=== PATIENT | male | born 1965 | race Caucasian/White ===

== ENCOUNTER 2017-03-20 13:31 | Inpatient (IN) | payer MEDICAID ==
--- NOTE | 2017-03-20 13:44 | CPEKG ---
Heart Rate: 86 RR Interval: 698 P-R Interval: 95 QRSD Interval: 88 QT Interval: 368 QTC Interval: 440 P [place]: 0 QRS [place]: -22 T Wave [place]: 26 EKG Severity - BORDERLINE ECG - EKG Impression: SINUS RHYTHM EKG Impression: SHORT ME INTERVAL, ACCELERATED AV CONDUCTION EKG Impression: BORDERLINE LEFT AXIS DEVIATION Electronically Signed By: Felipe Vargas 20-Mar-2017 14:31:24
--- NOTE | 2017-03-20 14:28 | EDPHY ---
H & P Time Seen by Provider: 03/20/17 14:22 HPI/ROS: CHIEF COMPLAINT: Found on the ground HISTORY OF PRESENT ILLNESS: Patient arrives by EMS after his landlord heard a bump and found the patient on the floor upstairs. Patient states he has no medical complaints to me but can't tell me anything other than he has high blood pressure. He does have a history of psychiatric issues and sees [facility]. There is no seizure activity noted. Patient was seen to be incontinent but did not bite his tongue. He does not remember the event. He denies previous history of seizure disorder. REVIEW OF SYSTEMS: Eye: no change in vision ENT: didn't bite tongue Cardiac: no chest pain Pulmonary: no cough or SOB Abdomen: no vomiting, diarrhea, abdominal pain Musculoskeletal: no back pain or neck pain Skin: no rash or laceration Neuro: no headache Constitutional: no fever : no urinary symptoms A comprehensive 10 point review of systems is otherwise negative aside from elements mentioned in the history of present illness. PAST MEDICAL HISTORY: Hypertension Social history: Denies alcohol General Appearance: Alert and cooperative. Eyes: No scleral icterus. ENT, Mouth: Normal mucous membranes. No tongue laceration or abrasion Respiratory: Normal respiratory effort, breath sounds equal, lungs are clear to auscultation. Cardiovascular: Regular rate and rhythm. Gastrointestinal: Abdomen is soft and non tender. Neurological: Alert, face symmetric, normal motor and sensory in extremities. No clonus. He is confused. Skin: Warm and dry, no rashes. Musculoskeletal: No peripheral edema. No spinal tenderness. Psychiatric: Not agitated. Emergency Department course/MDM: Patient says his medications get filled at [facility] contact to attempt to obtain a medication list. At 1434 patient has not filled any antiepileptic medication. Initial nurse's notes a seizure disorder but I am unable to confirm that. 12-lead EKG interpreted by me; official reading is in trace master. My interpretation is sinus rhythm with short TN interval of 95 and left axis. 1440: Although the patient had some incontinence, he did not bite his tongue and his venous bicarbonate is normal. With this history I think that seizure would be less likely than syncope, and with a short TN interval and delta wave noted in lead 2 I think likely should be hospitalized for observation admission for possible [id number] or other cardiac etiology of syncope. 1520: Medications reviewed from [facility] include Buspar, Cymbalta, Gabapentin, Propranolol, and Quetiapine. Smoking Status: Current every day smoker Constitutional: Initial Vital Signs Temperature (C) 36.7 C 03/20/17 13:40 Heart Rate 85 03/20/17 13:40 Respiratory Rate 18 03/20/17 13:40 Blood Pressure 132/102 H 03/20/17 13:40 O2 Sat (%) 97 03/20/17 13:40 O2 Delivery Mode Room Air Allergies/Adverse Reactions: Unable to Assess Allergy (Unverified 03/20/17 13:40) Home Medications: Medication Instructions Recorded Unobtainable 03/20/17 Medical Decision Making - Diagnostics Imaging Results: Imaging Impressions Head CT 03/20/17 14:27 Impression: Normal. Results called and discussed with Dr. Felipe Vargas at 03/20/2017 14:53. Carotid Doppler Study 03/20/17 15:09 Impression: Mild atherosclerotic plaque right carotid bulb which is not flow significant. No flow limiting stenosis in either carotid artery. No evidence for dissection. Measurement of carotid stenosis is based on velocity parameters that correlate the residual internal carotid diameter with [place] Symptomatic Carotid Endarterectomy Trial (NASCET) based on stenosis levels. Negative head CT per Dr. Piña at 1455 Imaging: Discussed imaging studies w/ house calls nurse practitioner Radiologist, I viewed and interpreted images myself Differential Diagnosis: Differential diagnosis considered for syncope including but not limited to seizure disorder or epilepsy, vasovagal syncope, arrhythmia, dehydration, and blood loss. Consult/Admit Bed Type: [facility] - Data Points Laboratory Results: Laboratory Results 03/20/17 13:20 03/20/17 13:20 03/20/17 03/20/17 03/20/17 13:20 13:20 13:20 WBC RBC Hgb Hct MCV MCH MCHC RDW Plt Count MPV Neut % (Auto) Lymph % (Auto) [place] % (Auto) Eos % (Auto) Baso % (Auto) Nucleat RBC Rel Count Absolute Neuts (auto) Absolute Lymphs (auto) Absolute Monos (auto) Absolute Eos (auto) Absolute Basos (auto) Absolute Nucleated RBC Immature Gran % Immature Gran # D-Dimer 0.54 ug/mLFEU H ug/mLFEU (0.00-0.50) Sodium Potassium Chloride Carbon Dioxide Anion Gap BUN Creatinine Estimated GFR Glucose Calcium Troponin I < 0.012 ng/mL ng/mL (0.000-0.034) Procalcitonin Pending 03/20/17 03/20/17 13:20 13:20 WBC 15.93 10^3/uL H 10^3/uL (3.80-9.50) RBC 5.04 10^6/uL 10^6/uL (4.40-6.38) Hgb 15.4 g/dL g/dL (13.7-17.5) Hct 46.9 % % (40.0-51.0) MCV 93.1 fL fL (81.5-99.8) MCH 30.6 pg pg (27.9-34.1) MCHC 32.8 g/dL g/dL (32.4-36.7) RDW 16.6 % H % (11.5-15.2) Plt Count 342 10^3/uL 10^3/uL (150-400) MPV 10.2 fL fL (8.7-11.7) Neut % (Auto) 82.4 % H % (39.3-74.2) Lymph % (Auto) 8.2 % L % (15.0-45.0) [place] % (Auto) 5.5 % % (4.5-13.0) Eos % (Auto) 2.5 % % (0.6-7.6) Baso % (Auto) 0.8 % % (0.3-1.7) Nucleat RBC Rel Count 0.0 % % (0.0-0.2) Absolute Neuts (auto) 13.14 10^3/uL H 10^3/uL (1.70-6.50) Absolute Lymphs (auto) 1.30 10^3/uL 10^3/uL (1.00-3.00) Absolute Monos (auto) 0.88 10^3/uL H 10^3/uL (0.30-0.80) Absolute Eos (auto) 0.40 10^3/uL 10^3/uL (0.03-0.40) Absolute Basos (auto) 0.12 10^3/uL H 10^3/uL (0.02-0.10) Absolute Nucleated RBC 0.00 10^3/uL 10^3/uL (0-0.01) Immature Gran % 0.6 % % (0.0-1.1) Immature Gran # 0.09 10^3/uL 10^3/uL (0.00-0.10) D-Dimer Sodium 144 mEq/L mEq/L (135-145) Potassium 4.2 mEq/L mEq/L (3.5-5.2) Chloride 103 mEq/L mEq/L (97-110) Carbon Dioxide 27 mEq/l mEq/l (22-31) Anion Gap 14 mEq/L mEq/L (8-16) BUN 21 mg/dL mg/dL (7-23) Creatinine 0.8 mg/dL mg/dL (0.7-1.3) Estimated GFR > 60 Glucose 93 mg/dL mg/dL (70-100) Calcium 9.7 mg/dL mg/dL (8.5-10.4) Troponin I Procalcitonin Medications Given: Discontinued Medications Nicotine (Nicoderm Cq) 21 mg TD EDNOW ONE Stop: 03/20/17 14:52 Last Admin: 03/20/17 15:09 Dose: 21 mg Departure - Departure Disposition: [facility] Inpatient Acute Clinical Impression: Syncope Qualifiers: Syncope type: unspecified Qualified Code(s): R55 - Syncope and collapse Condition: Good
[2017-03-20 14:32] LABS: PLATELET COUNT 342 10^3/uL (150-400)
[2017-03-20] MEDS ORDERED: NICOTINE 21 MG/24 HR PATCH TD ONE (14:51)
[2017-03-20] MEDS ORDERED: NICOTINE POLACRILEX 2 MG GUM B PRN (15:05)
[2017-03-20] MEDS ORDERED: ONDANSETRON 4 MG/2 ML VIAL IVP PRN (15:05)
[2017-03-20] MEDS ORDERED: ONDANSETRON DISINTEGRATING 4 MG TAB PO PRN (15:05)
[2017-03-20] MEDS ORDERED: ACETAMINOPHEN 325 MG TAB PO PRN (15:05)
[2017-03-20] MEDS ORDERED: IOPAMIDOL (ISOVUE 370) 100 ML BTL IV ONE (15:44)
--- NOTE | 2017-03-20 15:56 | PDGENHP ---
History and Physical - Chief Complaint Acute encephalopathy - History of Present Illness Primary care provider: Jesenia Durán [facility] Primary mental health: [facility] HPI: 51-year-old male presenting with acute encephalopathy characterized as confusion, disorientation, unresponsiveness and illogical thought process, with onset of symptoms at least on the day of this presentation. Per report, a " thud "was heard in the patient's apartment [facility], and the patient presumably experienced an associated unwitnessed fall. Another resident came up to check on him, and found him on the floor, confused, unable to provide any further history. The patient was brought to [facility], he subsequently urinated on himself before he is able to get to the bathroom, and it should be noted that he did not have overt urinary incontinence on presentation. On my interview with the patient, he reports that he is unaware of the situation precipitating this presentation, but he does have some chronic pain located in his lower back radiating bilaterally into his legs, for which he works with his primary care provider. He otherwise denies any chest pain, palpitations, shortness of breath, nausea vomiting or diarrhea, fever chills. He does endorse possible "cold" symptoms, but is otherwise unable to further qualify. It should be noted that the patient's ability to answer questions seems to be intermittent, and a good deal of his responses are illogical, asking whether there was a fire truck in the exam room , asking whether I was there to take his shoes off. He is unable to report whether he is taking his home medications as prescribed. History Information - Allergies/Home Medication List Allergies/Adverse Reactions: Unable to Assess Allergy (Unverified 03/20/17 13:40) Home Medications: Unobtainable 03/20/17 [Last Taken Unknown] I have personally reviewed and updated: family history, medical history, social history, surgical history - Past Medical History hypertension, hyperlipidemia Additional medical history: Generalized anxiety disorder, major depressive disorder, reported seizure disorder but not on any anti epileptic medications - Surgical History Reports: no pertinent surgical hx - Family History Additional family history: Patient reports that his family resides in [place], he is unable to provide any other additional family history - Social History Smoking Status: Current every day smoker Alcohol Use: None Drug Use: None Additional social history: Resides in mental health housing Review of Systems Review of Systems: ROS: 10pt was reviewed & negative except for what was stated in HPI & below Constitutional: Reports: other ("Cold ") Muscolosketal: Reports: back pain (With bilateral sciatica) Neurological: Reports: other (Confusion, disorientation, illogical thought process) Physical Exam Physical Exam: Temp Pulse Resp BP Pulse Ox 36.7 C 95 18 143/93 H 94 03/20/17 13:40 03/20/17 15:11 03/20/17 15:11 03/20/17 15:11 03/20/17 15:11 Constitutional: no apparent distress, not in pain, unkempt, No uncomfortable Eyes: PERRL, anicteric sclera, EOMI Ears, Nose, Mouth, Throat: moist mucous membranes, hearing normal, ears appear normal, no oral mucosal ulcers Cardiovascular: regular rate and rhythym, no murmur, rub, or gallop, No edema Respiratory: no respiratory distress, no rales or rhonchi, clear to auscultation Gastrointestinal: no palpable masses, No normoactive bowel sounds (Hypoactive), No tenderness, No guarding, No distension Skin: warm, No abrasion, No rash Neurologic: sensation intact bilaterally, other (Alert awake oriented x2 to person and time, not to place), No weakness (Motor strength 5/5 bilateral upper and lower extremities, but full neuro exam is somewhat complicated by the patient's difficulty with following directions), No facial droop Psychiatric: not anxious, encephalopathic, poor insight, poor memory, other ( Verbalizes illogical responses, asks illogical questions, thought process is tangential, does not appear to be actively manic, is cooperative during the exam but has difficulty following commands), No agitated Lab Data & Imaging Review 03/20/17 13:20 03/20/17 13:20 WBC 15.93 10^3/uL (3.80-9.50) H 03/20/17 13:20 RBC 5.04 10^6/uL (4.40-6.38) 03/20/17 13:20 Hgb 15.4 g/dL (13.7-17.5) 03/20/17 13:20 Hct 46.9 % (40.0-51.0) 03/20/17 13:20 MCV 93.1 fL (81.5-99.8) 03/20/17 13:20 MCH 30.6 pg (27.9-34.1) 03/20/17 13:20 MCHC 32.8 g/dL (32.4-36.7) 03/20/17 13:20 RDW 16.6 % (11.5-15.2) H 03/20/17 13:20 Plt Count 342 10^3/uL (150-400) 03/20/17 13:20 MPV 10.2 fL (8.7-11.7) 03/20/17 13:20 Neut % (Auto) 82.4 % (39.3-74.2) H 03/20/17 13:20 Lymph % (Auto) 8.2 % (15.0-45.0) L 03/20/17 13:20 [place] % (Auto) 5.5 % (4.5-13.0) 03/20/17 13:20 Eos % (Auto) 2.5 % (0.6-7.6) 03/20/17 13:20 Baso % (Auto) 0.8 % (0.3-1.7) 03/20/17 13:20 Nucleat RBC Rel Count 0.0 % (0.0-0.2) 03/20/17 13:20 Absolute Neuts (auto) 13.14 10^3/uL (1.70-6.50) H 03/20/17 13:20 Absolute Lymphs (auto) 1.30 10^3/uL (1.00-3.00) 03/20/17 13:20 Absolute Monos (auto) 0.88 10^3/uL (0.30-0.80) H 03/20/17 13:20 Absolute Eos (auto) 0.40 10^3/uL (0.03-0.40) 03/20/17 13:20 Absolute Basos (auto) 0.12 10^3/uL (0.02-0.10) H 03/20/17 13:20 Absolute Nucleated RBC 0.00 10^3/uL (0-0.01) 03/20/17 13:20 Immature Gran % 0.6 % (0.0-1.1) 03/20/17 13:20 Immature Gran # 0.09 10^3/uL (0.00-0.10) 03/20/17 13:20 D-Dimer 0.54 ug/mLFEU (0.00-0.50) H 03/20/17 13:20 Sodium 144 mEq/L (135-145) 03/20/17 13:20 Potassium 4.2 mEq/L (3.5-5.2) 03/20/17 13:20 Chloride 103 mEq/L (97-110) 03/20/17 13:20 Carbon Dioxide 27 mEq/l (22-31) 03/20/17 13:20 Anion Gap 14 mEq/L (8-16) 03/20/17 13:20 BUN 21 mg/dL (7-23) 03/20/17 13:20 Creatinine 0.8 mg/dL (0.7-1.3) 03/20/17 13:20 Estimated GFR > 60 03/20/17 13:20 Glucose 93 mg/dL (70-100) 03/20/17 13:20 Calcium 9.7 mg/dL (8.5-10.4) 03/20/17 13:20 Troponin I < 0.012 ng/mL (0.000-0.034) 03/20/17 13:20 Visualized and Interpreted EKG results: Yes EKG Interpretation: Positive for: other (Normal sinus mechanism, possible delta wave in lead II) Assessment & Plan Assessment: 51-year-old male presents with acute encephalopathy in the setting of generalized anxiety disorder, major depressive disorder Plan: 1. Acute encephalopathy. Acute, new problem this provider, further workup indicated. Evidenced by global brain dysfunction characterized as confusion, disorientation, illogical thought process, impaired memory, unclear etiology but it does appear that this is an acute change from his baseline as 1 of the other residents and/or staff from his residence sent him to the emergency department for apparent acute changes -unclear cause, potentially postictal, will placed on seizure precautions, get Neurology consultation, patient reports a seizure history -will check for evidence of infection with respiratory viral panel given his leukocytosis, procalcitonin level -will check prolactin level given possibility of seizure -given the possibility of syncope and marginally elevated D-dimer level, will get CT angiogram to rule out dissection, rule out pulmonary embolism -given the potential for cardiac arrhythmia in the setting of behavioral health medications and possible delta wave on EKG, will cycle cardiac enzyme, monitor on telemetry, have discussed the patient's presentation with Dr. Ignacio Rosenbaum and Cardiology will consult in the a.m. once further data is available -check carotid ultrasound, check echocardiogram -check drug screen -reviewed outside records including 01/25/2017 TSH level 2.3, repeat TSH at this time -obtain outside records from [facility], Jesenia Durán PCP, to determine the patient's baseline level of functioning -once the above workup has been completed, and if there is no recurrence of syncope or any other concerning events, if the patient's mental status continues to demonstrate illogical thought process, tangential thinking, would recommend behavioral health evaluation to determine whether the patient is psychiatrically decompensated and requiring inpatient mental health stay 2. Generalized anxiety disorder, major depressive disorder. Based on review of outside records from [facility], with the patient's home medications including BuSpar 15 mg daily, Cymbalta 60 mg daily, gabapentin 300 mg 3 times daily, propranolol 40 mg twice daily, Seroquel 100 mg at bedtime, Vistaril 50 mg as needed -emergency department case management reaching out to [facility] to obtain any additional information 3. Likely sciatica. Patient's description of his back pain and sciatica sending symptoms are currently being treated by gabapentin, continue Diet. Regular, NPO in a.m. in case any further cardiac workup indicated Prophylaxis. Moderate risk patient, given likely mobility, give Lovenox 40, hold off on SCDs given the patient's likelihood of falling Code. Full at present, unclear MD SHOEMAKER, patient is unable to answer this question Disposition. Anticipated discharge uncertain this time, anticipated length stay is greater than 48 hr for reasonable medical necessity including acute encephalopathy with extensive workup anticipated, as outlined above with underlying high risk mental health disorders.
--- NOTE | 2017-03-20 16:23 | PDMN ---
Medical Necessity Medical necessity: C/M review: est. > 2 MN LOS for eval and TX of acute and persistent encephalopathy of unclear etiology requiring planned echocardiogram, Neurology consult, Cardiology consult, ongoing cardiac monitoring, pulse oximetry, seizure precautions, seizure assessment, extensive workup, comorbid high risk mental health disorders - generalized anxiety disorder, major depressive disorder, likely sciatica, current every day smoker, patient resides in mental health housing, history of hypertension, hyperlipidemia, reported seizure disorder but patient not on any anti epileptic medications per H/P.
--- NOTE | 2017-03-20 18:17 | ASMTCMCOM ---
CM Note CM Note Notes: Pt presented to the ED via EMS from his apartment complex [facility] Pt had an unwitnessed fall; pt might have had seizure. Spoke with patient but patient was speaking incoherently; pt only able to provide logical responses intermittently. Spoke with [facility] ([phone]) and was able to get patient's medication list faxed over to the ED. Per chart review, it appears pt had outpatient labs drawn while at [place] [facility] on 01/25/18. Exact DC needs unknown. CM to follow Date Signed: 03/20/2017 06:16 PM Electronically Signed By:Danielle Sims RN
[2017-03-20] MEDS: PANTOPRAZOLE SODIUM 40 MG TAB PO SCH (18:24)
[2017-03-20 20:19] LABS: CREATINE KINASE 78 IU/L (0-224)
[2017-03-20] MEDS: GABAPENTIN 300 MG CAP PO SCH (23:36)
[2017-03-21 02:56] LABS: PLATELET COUNT 275 10^3/uL (150-400)
[2017-03-21 03:05] LABS: INR 0.98 (0.83-1.16); PROTIME(PATIENT) 13.2 SEC (12.0-15.0)
[2017-03-21] MEDS ORDERED: GABAPENTIN 300 MG CAP PO SCH (09:00)
[2017-03-21] MEDS ORDERED: PROPOFOL/EMULSION 500 MG/50 ML BOTTLE IV ONE (11:13)
[2017-03-21] MEDS ORDERED: MIDAZOLAM 2 MG/2 ML VIAL ONE (11:13)
[2017-03-21] MEDS ORDERED: LIDOCAINE 2% 5 ML SDV ONE (11:13)
--- NOTE | 2017-03-21 11:36 | PDANEPAE ---
ANE History of Present Illness egd ANE Past Medical History - Cardiovascular History Hx Hypertension: Yes Hx Arrhythmias: No Hx Chest Pain: No Hx Coronary Artery / Peripheral Vascular Disease: No Hx CHF / Valvular Disease: No Hx Palpitations: No - Pulmonary History Hx COPD: No Hx Asthma/Reactive Airway Disease: No Hx Recent Upper Respiratory Infection: No Hx Oxygen in Use at Home: No Hx Sleep Apnea: No Sleep Apnea Screening Result - Last Documented: Positive Pulmonary History Comment: smoker - Neurologic History Hx Cerebrovascular Accident: No Hx Seizures: No Hx Dementia: No - Endocrine History Hx Diabetes: No Hypothyroid: No Hyperthyroid: No - Renal History Hx Renal Disorders: No - Liver History Hx Hepatic Disorders: No - GI History GERD: moderate - Chronic Pain History Chronic Pain: Yes ANE Review of Systems Review of Systems: - Exercise capacity Exercise capacity: >=4 METS ANE Patient History - Allergies Allergies/Adverse Reactions: Unable to Assess Allergy (Unverified 03/20/17 13:40) - Home Medications Home Medications: DULoxetine [Cymbalta 60 MG (*)] 60 mg PO DAILY 03/20/17 [Last Taken Unknown] Gabapentin [Neurontin 300 MG (*)] 300 mg PO AD 03/20/17 [Last Taken Unknown] Gabapentin [Neurontin 300 MG (*)] 300 mg PO TID 03/20/17 [Last Taken Unknown] Hydroxyzine Pamoate [Vistaril] 50 mg PO AD 03/20/17 [Last Taken Unknown] Propranolol HCl [Inderal 40mg (*)] 40 mg PO BID 03/20/17 [Last Taken Unknown] QUEtiapine FUMARATE [Seroquel 100 mg (*)] 100 mg PO HS 03/20/17 [Last Taken Unknown] busPIRone [Buspar (*)] 15 mg PO AD 03/20/17 [Last Taken Unknown] - NPO status NPO Status: no food or drink >8 hours NPO Since - Liquids (Date): 03/21/17 NPO Since - Liquids (Time): 00:00 NPO Since - Solids (Date): 03/21/17 NPO Since - Solids (Time): 00:00 - Anes Hx Anes Hx: no prior problems - Smoking Hx Smoking Status: Current every day smoker - Alcohol Use Alcohol Use: None ANE Labs/Vital Signs - Labs Result Diagrams: 03/21/17 02:45 03/21/17 02:45 - Vital Signs Blood Pressure: 133/81 Heart Rate: 85 Respiratory Rate: 16 O2 Sat (%): 97 Height: 175.26 cm Weight: 67.5 kg ANE Physical Exam - Airway Mallampati Score: Class 2 Mouth exam: normal dental/mouth exam, poor dentition - Pulmonary Pulmonary: no respiratory distress - Cardiovascular Cardiovascular: regular rate and rhythym - ASA Status ASA Status: II ANE Anesthesia Plan Anesthesia Plan: GA with mask (ivga)
[2017-03-21] MEDS ORDERED: LABETALOL HCL 5 MG/ML 20 ML MDV IVP PRN (11:37)
[2017-03-21] MEDS ORDERED: ONDANSETRON 4 MG/2 ML VIAL IVP PRN (11:37)
[2017-03-21] MEDS ORDERED: fentaNYL 100 MCG/2 ML INJ IVP PRN (11:37)
[2017-03-21] MEDS ORDERED: ALBUTEROL 3 ML DEYVIAL IH PRN (11:37)
[2017-03-21] MEDS ORDERED: NALOXONE HCL 0.4 MG/ML INJ IVP PRN (11:37)
[2017-03-21] MEDS ORDERED: NS 500 ML IV PRN (11:37)
--- NOTE | 2017-03-21 11:37 | GCON ---
[f rep st] CONSULTATION GASTROENTEROLOGY CONSULTATION IDENTIFYING DATA: A 51-year-old gentleman admitted after a seizure with complaint of heartburn and a bnormal finding on chest CT with thickening of the esophagus. HISTORY OF PRESENT ILLNESS: I have been asked to see this 51-year-old gentleman in consultation by Debo Wise for abnormal CT scan with thickening of the esophagus. The patient presented to the emerge ncy department postictal after seizure. Patient has a history of seizure disorder. He had collapsed in his apartment was found confused, unable to provide any information or further history. The marquise ent was brought to the [facility]. The patient had a head CT scan and a chest CT scan. The head CT scan was normal. CT scan of the chest showed a thickening esophagus consistent with es ophagitis or tumor. The patient does have a history of reflux disease. He does not take any routine medications for reflux. I was asked to see the patient for further evaluation. The patient denies any nausea, vomiting, or symptoms of dysphagia. He has had no change in bowel habits. He denies any melenic stool or bright red blood per rectum. He has had no difficulty with constipation or diarrhe a. PAST MEDICAL HISTORY: Remarkable for hypertension, hyperlipidemia. He has a history of generalized anxiety disorder, major depressive disorder, seizure disorder, chronic back pain. PAST SURGICAL HISTORY: No past surgical history. FAMILY HISTORY: He reports that his family resides in [place]. Otherwise negative. SOCIAL HISTORY: He is a smoker. Does not drink alcohol. Resides in mental health housing. MEDICATIONS: Prior to admission include Seroquel, propranolol, gabapentin, BuSpar, Cymbalta, and Vis taril. REVIEW OF SYSTEMS: Negative 10 systems, other than in HPI. PHYSICAL EXAM: VITAL SIGNS: Blood pressure 133/81, heart rate of 85, respiratory rate 16, 97% satur ation, temperature 36.8. GENERAL: A very pleasant gentleman in no acute distress. HEENT: Normocep halic, atraumatic. EOMI. Mucous membranes moist. NECK: Supple. No cervical adenopathy. No thyro megaly. LUNGS: Clear. CARDIAC: Normal S1, S2 without murmur. ABDOMEN: Benign, soft, no hepatosp lenomegaly, nontender. EXTREMITIES: Without clubbing, cyanosis, edema. SKIN: Warm, dry, intact. N EUROLOGIC: Nonfocal. PSYCHIATRIC: Alert and oriented x3 with normal affect. LABORATORY DATA: Hemoglobin 12.8, hematocrit 38.7, platelets of 275. PT of 13.2, INR of 0.98, PTT o f 29.4. Serum chemistries: Serum sodium 142, potassium 3.5, chloride 109, CO2 24, BUN of 17, creati nine 0.8. AST of 16, ALT of 31, alkaline phosphatase 54. IMPRESSION: A 51-year-old gentleman with seizure disorder admitted to the hospital postictal with se izure. Does have a history of reflux disease. I suspect patient has erosive esophagitis based on pr evious CT scan findings and clinical history. RECOMMENDATIONS: N.p.o. Proceed with upper endoscopy for further evaluation. Will ask Anesthesia t o assess, given patient's psych history and psych medications. We will follow with you. /[id number]/MODL
--- NOTE | 2017-03-21 11:37 | POSTANESTH ---
Post Anesthetic Evaluation Cardiovascular Status: Normal, Stable Respiratory Status: Normal, Stable Level of Consciousness/Mental Status: Can Participate in Eval Pain Control: Adequate, Prn Tx Ordered Nausea/Vomiting Control: Adequate, Prn Tx Ordered Complications Possibly Related to Anesthesia: None Noted
--- NOTE | 2017-03-21 11:38 | GIREPORT ---
Formerly [facility] Surgical Services - Endoscopy Department Patient Name: Wojciech Campuzano Procedure Date: 03/21/2017 10:08 AM Patient Type: Inpatient Attending MD/ ER Physician: Tyler Pimentel MD Procedure: Upper GI endoscopy Indications: Heartburn, Esophageal reflux, Gastro-esophageal reflux disease, Abnorma l CT of the GI tract Providers: Tyler Pimentel MD Medicines: Sedation Required Anesthesia Staff Assistance Complications: No immediate complications. Description of Procedure: After obtaining informed consent, the endoscope was passed under direct vision. Throughout the procedure, the patient's blood pressure, pulse, and oxygen saturations were monitored continuously. The Endoscope was intro duced through the mouth, and advanced to the second part of duodenum. Findings: LA Grade D (one or more mucosal breaks involving at least 75% of esopha geal circumference) esophagitis with no bleeding was found 33 to 36 cm from the incisors. Biopsies were taken with a cold forceps for histology. A medium-sized hiatal hernia was present. The entire examined stomach was normal. Biopsies were taken with a cold forceps for histology. The examined duodenum was normal. Estimated Blood Loss: Estimated blood loss: none. Post Op Diagnosis: - LA Grade D reflux esophagitis. Biopsied. - Medium-sized hiatal hernia. - Normal stomach. Biopsied. - Normal examined duodenum. Recommendation: - Follow an antireflux regimen. - Use Protonix (pantoprazole) 40 mg PO daily. - Repeat upper endoscopy in 2 months to check healing. - Will sign off, please call with further questions. Otherwise patient can follow up as an outpatient. - Thank you for allowing me to participate in the care of your patient. Tyler Pimentel MD Tyler Pimentel MD 03/21/2017 11:37:59 AM This report has been signed electronicallyStchai Pimentel MD Number of Addenda: 0 Note Initiated On: 03/21/2017 10:08 AM [email or web address]
--- NOTE | 2017-03-21 11:49 | ECHO ---
[email or web address] [address] [address] Main: [phone] Fax: Transthoracic Echocardiogram Name: LOYDA HIDALGO MR#: [id number] Study Date: 03/21/2017 Study Time: 09:55 AM Date of : 1965 Age: 51 year(s) Height: 175.3 cm (69 in.) Weight: 68.49 kg (151 lb.) BSA: 1.83 m2 Gender: Male Examination: Echo Indication: Seizure Image Quality: Contrast: Requested by: Ignacio Wise BP: 120 mmHg/83 mmHg Heart Rate: Rhythm: Indication: Seizure Procedure Staff Social Service Technician: Robin Lindo RUST Reading Physician: Adrian Bolanos Requesting Provider: Conclusions: Normal size left ventricle. No LV hypertrophy. EF is 76 %. No regional wall motion abnormality. Normal diastolic LV function. Normal appearing valvular structures with normal valve function. No pericardial effusion. Measurements: Chambers Valvular Assessment AV/MV Valvular Assessment TV/PV Normal Normal Normal Name Value Range Name Value Range Name Value Range Ao Mckayla (MM): 2.8 cm (2.2 cm-3.7 AV Vmax: 1.29 m/s (1 m/s-1.7 PV Vmax: 0.92 m/s (0.6 m/s-0.9 cm) m/s) m/s) IVSd (2D): 0.6 cm (0.6 cm-1.1 AV maxP mmHg ( - ) PV PGmax: 3 mmHg ( - ) cm) LVOT Vmax: 0.91 m/s (0.7 m/s-1.1 LVDd (2D): 4.5 cm (4.2 cm-5.9 m/s) cm) MV E Vmax: 0.66 m/s ( - ) LVDs (2D): 2.5 cm (2.1 cm-4 MV A Vmax: 0.61 m/s ( - ) cm) MV E/A: 1.08 ( - ) LVPWd (2D): 0.8 cm (0.6 cm-1 cm) LVEF (2D): 76 (>=54 %) Continued Measurements: Chambers Valvular Assessment AV/MV Name Value Name Value LADs Lon.9 cm MV E' Septal: 0.07 m/s LA Area: 14.3 cm2 MV E/E' Septal: 8.90 Patient: LOYDA HIDALGO Study Date: 03/21/2017 Page 1 of 2 09:55 AM MV E/E' Lateral: 5.70 Findings: Left Ventricle: Normal size left ventricle. No LV hypertrophy. Normal global systolic LV function. EF is 76 %. No regional wall motion abnormality. Normal diastolic LV function. Right Ventricle: Normal size right ventricle. Left Atrium: The left atrium is normal in size. Right Atrium: The right atrium is normal in size. Mitral Valve: The mitral valve is normal in appearance and function. Aortic Valve: The aortic valve is normal in appearance and function. Tricuspid Valve: The tricuspid valve is normal in appearance and function. Pulmonic Valve: The pulmonic valve is normal in appearance and function. Aorta: The aorta is normal. Pericardium: No pericardial effusion. (No Signature Object) Patient: LOYDA HIDALGO Study Date: 03/21/2017 Page 2 of 2 09:55 AM [id number]
--- NOTE | 2017-03-21 12:15 | HOSPPROG ---
Hospitalist Progress Note Assessment/Plan: #Seizure d/o with acute seizure -seizure resulting in admission and one 4 months ago -unclear why he is not on seizure medication -Neurology consult pending #Acute Encephalopathy due to post ictal page -resolving -tox screen negative #?Syncope -Doubt syncope -Echo is pending -Cards will not follow for now -Tele -trops neg x 3 #Diffuse Esophageal thickening on CT, ?Malignancy vs Esophagitis -will have endoscopy today #Tobacco Abuse disorder #Major Depressive d/o #Leukocytosis, likely reactive -PC unremarkable -No fever Plan: -await endoscopy -sz meds per Neuro -change to inpatient, med surg status -Lovenox for DVT proph Subjective: does not recall any event from yesterday leading to his hospitalization. had a seizure 4 months ago. Not a good historian. Awaiting endoscopy today Objective: Vital Signs Temp Pulse Resp BP Pulse Ox 36.5 C 85 16 133/81 H 97 03/21/17 11:36 03/21/17 11:36 03/21/17 11:36 03/21/17 11:36 03/21/17 11:36 Laboratory Results 03/21/17 02:45 03/21/17 02:45 03/20/17 03/21/17 03/22/17 05:59 05:59 05:59 Intake Total 450 300 Balance 450 300 PT 13.2 SEC (12.0-15.0) 03/21/17 02:45 INR 0.98 (0.83-1.16) 03/21/17 02:45 - Physical Exam Constitutional: no apparent distress Eyes: PERRL, EOMI Ears, Nose, Mouth, Throat: moist mucous membranes, hearing normal Cardiovascular: regular rate and rhythym Respiratory: no respiratory distress, no rales or rhonchi Gastrointestinal: normoactive bowel sounds, soft, non-tender abdomen Skin: warm Neurologic: AAOx3 Psychiatric: interacting appropriately, not anxious, not encephalopathic Lymph, Heme, Immunologic: No petechiae ICD10 Worksheet Patient Problems: Problems Problem Status Onset Syncope Acute
[2017-03-21] MEDS: ENOXAPARIN 40 MG/0.4 ML SYR SC SCH (12:46)
[2017-03-21] MEDS: PANTOPRAZOLE SODIUM 40 MG TAB PO SCH (12:46)
[2017-03-21] MEDS: NICOTINE 21 MG/24 HR PATCH TD SCH (12:47)
[2017-03-21] MEDS: GABAPENTIN 300 MG CAP PO SCH ×4 (12:47→21:57)
--- NOTE | 2017-03-21 14:01 | NEUROPROG ---
Assessment: HOSPITAL NEUROLOGY CONSULT REQUESTING: Ignacio Wise MD REASON: seizure HPI: 51 year old right-handed man with a history of depression, currently living in mental health housing, presented to our ED yesterday after being found down in his apartment. Landlord for his building apparently heard a loud "thud" come from the patient' s residence. Landlord went to the patient's apartment to find him on the ground and profoundly confused. He was brought to our ED where he remained encephalopathic, but this cleared with time. No tongue laceration or incontinence. Labs did reveal a leukocytosis that resolved, but electrolytes and bicarb were normal. Prolactin was modestly elevated. Patient is amnestic of the events. He states he was diagnosed with seizures in 2009 and reports he has "grand mal" seizures. He states his workman's comp doctor put him on anti- seizure medication for a month but told him he didn't need to keep taking it thereafter - unsure if this is reliable. Other details of his seizure history are scant. He hasn't missed doses of his home medications, including duloxetine. He denies epilepsy risk factors including TBI, intracranial instrumentation, [employer] infection, collagen vascular disease. He is not sure if he 's had imaging or EEG. He denies alcohol or toxic ingestions. He had a normal CT head wo here. He is now being evaluated for esophageal thickening concerning for possible malignancy - he had EGD this AM. ROS: As per the HPI, otherwise a complete 12 point ROS was performed and is negative ALLERGIES AND MEDS: As recorded in the EMR - reviewed and reconciled PFSH: As per the intake H&P by Dr. Wise from yesterday EXAM: VS reviewed in EMR GEN: WDWN laying in NAD HEENT: NCAT, sclera anicteric, conjunctiva not injected, MMM, oropharynx clear, no scalp tenderness NECK: supple, nontender, no meningismus CV: RRR s1 s2 wo m/r/c/g. Carotid pulses 2+ wo bruit NEURO: MS: awake, alert, oriented to all spheres. Speech nondysarthric. No language disturbance. Follows commands. Attends to both sides. Some episodic memory impairment on casual conversation. Mood euthymic. Adequate fund of knowledge. CN: pupils 4mm round and reactive. Fundi with sharp discs. VFF. Primary gaze centered. Full ocular motility. Facial sensation preserved. Face symmetric. Hearing grossly intact to finger rub. Palatoglossal movements intact. Shoulder shrug and head turn strong. MOTOR: normal bulk/tone. No adventitial movements. Full power throughout. SENSORY: isymmetric/intact LT/PP in the extremities. No extinction. COORD: no ataxia FN/HS. Letha preserved. REFLEX: plantars down. No clonus. DTRS 2+/4. GAIT: deferred to PT safety eval DATA REVIEW: Labs reviewed in EMR PERSONALLY INTERPRETED RESULTS AND DATA: CT head wo - normal IMPRESSION AND RECOMMENDATIONS: // POSSIBLE SEIZURE Patient with reported history of seizure found down at home confused. Encephalopathy has cleared. Leukocytosis resolved. It is likely he suffered a seizure. Would recommend increasing his gabapentin to 600mg TID, which will put him at therapeutic dosing from an anti-seizure standpoint. Start seizure precautions in hospital. Advised against driving for 90 days since last seizure. Counseled on safety precautions, such as not climbing heights, not swimming/tub bathing alone, not operating heavy machinery and not performing other activities that could put himself or others in harm's way due to a seizure. Followup in our clinic after discharge for further evaluation, including MRI brain and EEG. Will sign off. Recall PRN. Objective: Vital Signs Temp Pulse Resp BP Pulse Ox 36.5 C 82 16 108/76 94 03/21/17 11:36 03/21/17 12:31 03/21/17 12:31 03/21/17 12:31 03/21/17 12:31 Laboratory Results 03/21/17 02:45 03/21/17 02:45 03/20/17 03/21/17 03/22/17 05:59 05:59 05:59 Intake Total 450 600 Balance 450 600 PT 13.2 SEC (12.0-15.0) 03/21/17 02:45 INR 0.98 (0.83-1.16) 03/21/17 02:45 Allergies/Adverse Reactions: Unable to Assess Allergy (Unverified 03/20/17 13:40)
--- NOTE | 2017-03-21 14:22 | ASMTCMCOM ---
CM Note CM Note Notes: Spoke with RN & MD; pt had EGD today to evaluate esophageal thickening concerning for possible malignancy; awaiting results. No PT/OT ordered. CM will need to contact [facility] ([phone]) when pt is medically stable & ready for dc back to [facility]. CM will continue to follow. Dc plan- [facility] Date Signed: 03/21/2017 02:21 PM Electronically Signed By:Yamila Renteria RN
[2017-03-22] MEDS: NICOTINE 21 MG/24 HR PATCH TD SCH (10:49)
[2017-03-22] MEDS: ENOXAPARIN 40 MG/0.4 ML SYR SC SCH (10:49)
[2017-03-22] MEDS: GABAPENTIN 300 MG CAP PO SCH (10:49)
[2017-03-22] MEDS: PANTOPRAZOLE SODIUM 40 MG TAB PO SCH (10:49)
[2017-03-22 11:09] VITALS: BP 117/74; PULSE 86; RESP 14; TEMP 98.7; O2SAT 96
[2017-03-22] MEDS ORDERED: busPIRone 15 MG TAB PO SCH ×2 (13:00→21:00)
[2017-03-22] MEDS ORDERED: PROPRANOLOL HCL 40 MG TAB PO SCH (13:00)
[2017-03-22] MEDS ORDERED: hydrOXYzine HCL 50 MG TAB PO SCH (13:00)
[2017-03-22] MEDS ORDERED: DULoxetine 60 MG CAP PO SCH (13:00)
[2017-03-22] MEDS ORDERED: hydrOXYzine HCL 50 MG TAB PO PRN (14:10)
--- NOTE | 2017-03-22 19:55 | GDS ---
[f rep st] DISCHARGE SUMMARY DISCHARGE DIAGNOSES: 1. Seizure. 2. Severe esophagitis. 3. Acute encephalopathy due to postictal state. 4. Major depressive disorder. 5. Tobacco abuse history. HISTORY OF PRESENT ILLNESS: The patient is a 51-year-old male, who lives in mental health housing [facility] a loud thud was heard, and the patient was found on the floor confused, unable to provide any fur ther history. He was incontinent of urine. He has a known seizure disorder. Seizure was the suspec shannon etiology of this event. Dr. Mann saw him in consultation. He agreed that this was likely a s eizure event and increased his Neurontin to 600 mg p.o. 3 times daily. He was advised not to drive f or 90 days and otherwise advised regarding seizure precautions. Dr. Mann would like to see him as an outpatient for MRI of the brain and EEG. Incidentally noted on CT angiogram of the chest for pulmonary embolism was extensive esophageal thick ening. Gastroenterology was consulted, and he underwent EGD, and was found to have extensive esophag itis. He was started on a proton pump inhibitor. Biopsies are pending. He will require followup EG D in 2 months to ensure healing. DISCHARGE MEDICATIONS: Please see computer record for full detailed list. New medications: 1. Neurontin increased to 600 mg p.o. 3 times daily. 2. Protonix 40 mg p.o. daily. DISCHARGE INSTRUCTIONS: 1. Follow up with Dr. Mann, Neurology in 2 weeks for outpatient MRI and EEG. 2. Follow up with Dr. Pimentel of Gastroenterology for repeat EGD in 2 months to ensure healing. Greater than 30 minutes' time was spent arranging this discharge. The patient was seen and examined by me on day of discharge. /[id number]/MODL
[2017-03-22] MEDS ORDERED: QUEtiapine FUMARATE 100 MG TAB PO SCH (21:00)
== END 2017-03-22 15:23 | disposition home or self-care (01) | DRG 100 ==
LOC: EDUNIT# → OBSVTOIN 15:52 → F2W 16:07
PROVIDERS: ADMIT Internal Medicine; ATTEND Internal Medicine
PROC: 0DB68ZX Excision of Stomach, Via Natural or Artificial Opening Endoscopic, Diagnostic (ICD-10-PCS; principal; 2017-03-21 10:30)
PROC: 0DB38ZX Excision of Lower Esophagus, Via Natural or Artificial Opening Endoscopic, Diagnostic (ICD-10-PCS; principal; 2017-03-21 10:30)
DX: G40.909 Epilepsy, unspecified, not intractable, without status epilepticus (principal); G93.40 Encephalopathy, unspecified; K21.0 Gastro-esophageal reflux disease with esophagitis; K44.9 Diaphragmatic hernia without obstruction or gangrene; F32.9 Major depressive disorder, single episode, unspecified; F41.1 Generalized anxiety disorder; I67.2 Cerebral atherosclerosis; I10 Essential (primary) hypertension; M54.40 Lumbago with sciatica, unspecified side; E78.5 Hyperlipidemia, unspecified; F17.210 Nicotine dependence, cigarettes, uncomplicated
CPT/HCPCS: 80307; 97161-GP; 97165-GO; G0480; J1650; J2250; J2704; Q9967

== ENCOUNTER 2017-04-14 18:59 | Emergency (ER) | payer MEDICAID ==
--- NOTE | 2017-04-14 19:43 | EDPHY ---
H & P Time Seen by Provider: 04/14/17 19:08 HPI/ROS: HPI Alcohol intoxication. 51-year-old male on an arc hold with [employer]. Patient has a long history of alcohol abuse. He was found intoxicated and unable to ambulate on the street. He was initially brought to the arc. He was then sent to the emergency department to metabolize. No history of trauma. The patient does not have any complaints. He states that he has been drinking whiskey most of the day. ROS: Constitutional: No fever, no chills. No weakness. Eyes: No discharge. No changes in vision. ENT: No sore throat. No nasal congestion or rhinorrhea. Respiratory: No cough. No shortness of breath. Cardiac: No chest pain, no palpitations. Gastrointestinal: No abdominal pain, no vomiting, no diarrhea. Genitourinary: No hematuria. No dysuria or increased frequency with urination. Musculoskeletal: No back pain. No neck pain. No myalgias or arthralgias. Skin: No rashes. Neurological: No headache. No focal weakness or altered sensation. Past medical history: Hypertension, psychiatric issues, alcohol withdrawal seizures. Social history: Homeless. Smokes cigarettes. Alcohol abuse. Denies IV drugs or street drugs. Physical Exam: General Appearance: Sleeping but arousable. Dirty and disheveled. Strong odor of alcohol on his breath. This patient is responding to questions with slurred speech. This patient appears well-hydrated and well-nourished. Head: Normocephalic atraumatic. Eyes: Pupils equal and round no pallor or injection. No lid edema, erythema or injection. Respiratory: There are no retractions, lungs are clear to auscultation with good air movement bilaterally. Cardiovascular: Regular rate and rhythm. No murmur. Gastrointestinal: Abdomen is soft and nontender, no masses, bowel sounds normal. No focal tenderness at McBurney's point. No Choi sign. Neurological: Motor sensory function is grossly intact. Cranial nerves are grossly normal. Skin: Warm and dry, no rashes. No acute lacerations or abrasions. Musculoskeletal: Neck is supple and nontender. Extremities are symmetrical. All joints range without pain or impingement. Psychiatric: No agitation. No depression. Database: EKG: Imaging: Procedures: Emergency department course: Vital signs reviewed and are normal. Plan will be to allow this patient to monitor this patient and allow him to metabolize until appropriately sober for transfer to the [facility]. He is on an arc hold. 9:00 p.m., the patient remains to intoxicated for transfer to the [facility]. Care turned over to Dr. Mccloud at this time. Expected disposition is discharged to [facility] when appropriate. Differential Diagnosis: The differential diagnosis on this patient includes but is not limited to alcohol intoxication, history of alcohol abuse. Traumatic brain injury, other significant traumatic injury unlikely. This represents a partial list of diagnoses considered. These considerations are based on history, physical exam , past history, reassessment and diagnostic testing. Smoking Status: Current every day smoker Constitutional: Initial Vital Signs Temperature (C) 36.3 C 04/14/17 19:16 Heart Rate 72 04/14/17 19:16 Respiratory Rate 18 04/14/17 19:16 Blood Pressure 128/81 H 04/14/17 19:16 O2 Sat (%) 98 04/14/17 19:16 O2 Delivery Mode Room Air Allergies/Adverse Reactions: No Known Allergies Allergy (Unverified 03/21/17 16:27) Home Medications: Medication Instructions Recorded DULoxetine [Cymbalta 60 MG (*)] 60 mg PO DAILY 03/20/17 Hydroxyzine Pamoate [Vistaril] 50 mg PO TID PRN 03/20/17 Propranolol HCl [Inderal 40mg (*)] 40 mg PO BID 03/20/17 QUEtiapine FUMARATE [Seroquel 100 100 mg PO HS 03/20/17 mg (*)] busPIRone [Buspar (*)] 15 mg PO BID 03/20/17 Gabapentin [Neurontin 300 MG (*)] 600 mg PO TID #180 cap 03/22/17 Pantoprazole Sodium [Protonix 40mg 40 mg PO DAILY #30 tab 03/22/17 (*)] Departure - Departure Disposition: Home, Routine, Self-Care Clinical Impression: Alcohol intoxication Condition: Good Instructions: Abuse of Alcohol (ED) Additional Instructions: Read and follow provided instructions. Follow-up with your primary care physician in 1-2 days at [facility] for re -evaluation and to discuss detox options. Return to the emergency department for worsening symptoms or other serious concerns. Referrals: [facility] Detox 24 Hours [Outside] - As per Instructions
[2017-04-14 20:42] VITALS: O2SAT 97
[2017-04-14 21:02] VITALS: BP 141/84; PULSE 80; RESP 18; TEMP 97.5
[2017-04-14] MEDS ORDERED: CHLORDIAZEPOXIDE 25MG PREPK#6 BTL TAKEHOME ONE (21:26)
== END 2017-04-14 21:36 | disposition home or self-care (01) ==
LOC: EDUNIT#
DX: F10.129 Alcohol abuse with intoxication, unspecified (principal); I10 Essential (primary) hypertension; F17.210 Nicotine dependence, cigarettes, uncomplicated

== ENCOUNTER 2017-05-18 23:26 | Emergency (ER) | payer MEDICAID ==
[2017-05-18] MEDS ORDERED: NS 1,000 ML IV ONE (23:31)
--- NOTE | 2017-05-18 23:35 | EDPHY ---
H & P Time Seen by Provider: 05/18/17 23:32 HPI/ROS: HPI CHIEF COMPLAINT: Sleepy, sore throat HISTORY OF PRESENT ILLNESS: Patient is a 52-year-old male, he presents emergency room from his [facility] by EMS for sore throat. Patient states that he was recently seen at [facility], diagnosed with pneumonia and placed on doxycycline. Additionally he was given 8 tabs of 1 mg Ativan for alcohol withdrawal. However there only 2 tabs left. He took 6 mg of Ativan today. He presents emergency room somewhat sleepy but no acute distress he has stable vital signs. He does not have any significant complaints at this time. Denies chest pain or shortness of breath. Has a mild sore throat. Cough nonproductive. Past Medical History: Homelessness, schizophrenia, hypertension Past Surgical History: No significant surgical history Social History: Homelessness, alcoholism Family History: Noncontributory ROS REVIEW OF SYSTEMS: A comprehensive 10 point review of systems is otherwise negative aside from elements mentioned in the history of present illness. Exam Constitutional sleepy, not lethargic, nontoxic. triage nursing summary reviewed, vital signs reviewed, awake/alert. Eyes normal conjunctivae and sclera, EOMI, PERRLA. HENT posterior pharynx unremarkable, normal inspection, atraumatic, moist mucus membranes, no epistaxis, neck supple/ no meningismus, no raccoon eyes. Respiratory clear to auscultation bilaterally, normal breath sounds, no respiratory distress, no wheezing. Cardiovascular rate normal, regular rhythm, no murmur, no edema, distal pulses normal. Gastrointestinal soft, non-tender, no rebound, no guarding, normal bowel sounds, no distension, no pulsatile mass. Genitourinary no CVA tenderness. Musculoskeletal no midline vertebral tenderness, full range of motion, no calf swelling, no tenderness of extremities, no meningismus, good pulses, neurovascularly intact. Skin pink, warm, & dry, no rash, skin atraumatic. Neurologic awake, alert and oriented x 3, AAOx3, moves all 4 extremities equally, motor intact, sensory intact, CN II-XII intact, normal cerebellar, normal vision, normal speech. Psychiatric normal mood/affect. Heme/Lymph/Immune no lymphadenopathy. Differential Diagnosis: Includes but is not limited to in a particular order polysubstance abuse, benzodiazepine abuse, took too many of his Ativan 1 mg earlier today, recent pneumonia, electrolyte disturbance, dehydration, infection Medical Decision Making: Patient is somewhat sleepy but not lethargic is easily arousable. Plan for this patient IV establishment blood work IV fluids, chest x-ray two view and re-evaluate. Re-evaluation: Chest x-ray two view shows left lower lobe pneumonia. 1221: Patient's blood work is pending at this time is not hypoxic or febrile he is resting comfortably. Somewhat sleepy from Ativan. Will continue monitor. Patient is already on doxycycline encouraged him to continue this. Additionally discussed return precautions with him he understands return emergency room if develops worsening shortness of breath high fever trouble breathing questions or concerns. 0229: Patient re-evaluate he has been sleeping here. He is now alert and oriented he is ambulated well throughout the emergency room. Does not have a fever here. He is not tachycardic and is not hypoxic. He has not been coughing. His chest x-ray does show a left lower lobe pneumonia. He is currently on doxycycline for this. Patient has stable vital signs. I do not feel that he needs admission for his pneumonia given that he is afebrile not hypoxic has no increased work of breathing and is completely stable. I do encourage him to complete his doxycycline, refrain from drinking alcohol. Additionally return precautions discussed he understands return emergency room if develops worsening shortness of breath, fever, vomiting or does not feel well he is comfortable this plan. Source: Patient, EMS - Medical/Surgical History Hx Asthma: No Hx Chronic Respiratory Disease: No Hx Diabetes: No Hx Cardiac Disease: No Hx Renal Disease: No Hx Cirrhosis: No Hx Alcoholism: No Hx HIV/AIDS: No Hx Splenectomy or Spleen Trauma: No Other PMH: HTN, "Psych Issues", Seizure disorder - Social History Smoking Status: Current every day smoker Constitutional: Initial Vital Signs Temperature (C) 37.2 C 05/18/17 23:33 Heart Rate 87 05/18/17 23:33 Respiratory Rate 20 05/18/17 23:33 Blood Pressure 133/83 H 05/18/17 23:33 O2 Sat (%) 95 05/18/17 23:33 O2 Delivery Mode Room Air Allergies/Adverse Reactions: Penicillins Allergy (Verified 05/19/17 00:54) Home Medications: Medication Instructions Recorded DULoxetine [Cymbalta 60 MG (*)] 60 mg PO DAILY 03/20/17 Hydroxyzine Pamoate [Vistaril] 50 mg PO TID PRN 03/20/17 Propranolol HCl [Inderal 40mg (*)] 40 mg PO BID 03/20/17 QUEtiapine FUMARATE [Seroquel 100 100 mg PO HS 03/20/17 mg (*)] busPIRone [Buspar (*)] 15 mg PO BID 03/20/17 Gabapentin [Neurontin 300 MG (*)] 600 mg PO TID #180 cap 03/22/17 Pantoprazole Sodium [Protonix 40mg 40 mg PO DAILY #30 tab 03/22/17 (*)] Medical Decision Making - Diagnostics Imaging Results: Imaging Impressions Chest X-Ray 05/18/17 23:31 Impression: New left lower lobe consolidation suggesting pneumonia. - Data Points Laboratory Results: Laboratory Results 05/18/17 23:50 05/18/17 23:50 05/18/17 05/18/17 23:50 23:50 WBC 9.64 10^3/uL H 10^3/uL (3.80-9.50) RBC 3.89 10^6/uL L 10^6/uL (4.40-6.38) Hgb 11.3 g/dL L g/dL (13.7-17.5) Hct 34.4 % L % (40.0-51.0) MCV 88.4 fL fL (81.5-99.8) MCH 29.0 pg pg (27.9-34.1) MCHC 32.8 g/dL g/dL (32.4-36.7) RDW 16.0 % H % (11.5-15.2) Plt Count 234 10^3/uL 10^3/uL (150-400) MPV 10.6 fL fL (8.7-11.7) Neut % (Auto) 71.4 % % (39.3-74.2) Lymph % (Auto) 17.4 % % (15.0-45.0) [place] % (Auto) 8.0 % % (4.5-13.0) Eos % (Auto) 1.2 % % (0.6-7.6) Baso % (Auto) 0.9 % % (0.3-1.7) Nucleat RBC Rel Count 0.0 % % (0.0-0.2) Absolute Neuts (auto) 6.87 10^3/uL H 10^3/uL (1.70-6.50) Absolute Lymphs (auto) 1.68 10^3/uL 10^3/uL (1.00-3.00) Absolute Monos (auto) 0.77 10^3/uL 10^3/uL (0.30-0.80) Absolute Eos (auto) 0.12 10^3/uL 10^3/uL (0.03-0.40) Absolute Basos (auto) 0.09 10^3/uL 10^3/uL (0.02-0.10) Absolute Nucleated RBC 0.00 10^3/uL 10^3/uL (0-0.01) Immature Gran % 1.1 % % (0.0-1.1) Immature Gran # 0.11 10^3/uL H 10^3/uL (0.00-0.10) Sodium 139 mEq/L mEq/L (135-145) Potassium 3.1 mEq/L L mEq/L (3.5-5.2) Chloride 100 mEq/L mEq/L (97-110) Carbon Dioxide 28 mEq/l mEq/l (22-31) Anion Gap 11 mEq/L mEq/L (8-16) BUN 15 mg/dL mg/dL (7-23) Creatinine 0.6 mg/dL L mg/dL (0.7-1.3) Estimated GFR > 60 Glucose 113 mg/dL H mg/dL (70-100) Calcium 8.7 mg/dL mg/dL (8.5-10.4) Medications Given: Discontinued Medications Sodium Chloride (Ns) 1,000 mls @ 0 mls/hr IV EDNOW ONE; Wide Open PRN Reason: Protocol Stop: 05/18/17 23:32 Last Admin: 05/18/17 23:55 Dose: 1,000 mls Departure - Departure Disposition: Home, Routine, Self-Care Clinical Impression: Benzodiazepine abuse Pneumonia Qualifiers: Pneumonia type: due to unspecified organism Laterality: left Lung location: lower lobe of lung Qualified Code(s): J18.1 - Lobar pneumonia, unspecified organism Condition: Good Instructions: Benzodiazepine Overdose (ED) Additional Instructions: 1. Continue your antibiotics. 2. Return emergency room if you have worsening symptoms includes shortness of breath, high fever, worsening cough or pain. Referrals: Patient,NotPresent [Unknown] - As per Instructions
[2017-05-18 23:58] LABS: PLATELET COUNT 234 10^3/uL (150-400)
[2017-05-19 04:54] VITALS: BP 126/106
== END 2017-05-19 05:03 | disposition home or self-care (01) ==
LOC: EDUNIT#
DX: J18.1 Lobar pneumonia, unspecified organism (principal); F13.10 Sedative, hypnotic or anxiolytic abuse, uncomplicated; E86.9 Volume depletion, unspecified; I10 Essential (primary) hypertension; F17.200 Nicotine dependence, unspecified, uncomplicated